=== PATIENT | female | born 1970 | race Caucasian/White ===

== ENCOUNTER 2018-06-21 18:30 | Emergency (ER) | payer OTHER, MEDICAID, SELFPAY ==
[2018-06-21 18:40] VITALS: BP 176/111; PULSE 97; RESP 15; TEMP 36.8; O2SAT 100; BMI 38.7
--- NOTE | 2018-06-21 18:56 | ED_ITS ---
HPI - General Adult General Chief complaint: Diabetic Problem Stated complaint: States her glucose level is very high,dizziness Time Seen by Provider: 06/21/18 18:56 Source: patient Mode of arrival: ambulatory Limitations: no limitations History of Present Illness HPI narrative: Patient is a 47-year-old female with a history of diabetes. She is not currently on insulin. She is on metformin. Has been prescribed Invokana in the past but has not been on this in the past several months because she ran out of it and moved to the area. She does have a appointment scheduled with a new primary doctor on the of next month. She does take her sugars at home. She states that over the past day or so they have been running high. She does have a history of pancreatitis and states she does have some upper ab dominal pain. Today felt very dizzy. She did take her metformin today. She also has a history of headaches. States she has been on Imitrex in the past but does not have any of this medication as well. Related Data Home Medications Medication Instructions Recorded Confirmed HYDROCODONE/ACET (HYDROCODONE 1 tab PO Q4HP #0 06/18/11 BITARTRATE-ACETAMINOPHEN) LOVASTATIN (#ALTOPREV) 20 mg PO Q DAY #0 06/18/11 PANCREATIN (#CREON) 1 cap PO WITH MEALS #0 06/18/11 TRAMADOL HCL (TRAMADOL 50 mg PO PRN #0 06/18/11 HYDROCHLORIDE) Trazodone Hydrochloride (TRAZODONE) 50 mg PO QHS #0 06/18/11 carvedilol [Coreg] 3.125 mg PO BID #0 06/18/11 fluoxetine 40 mg PO Q DAY #0 06/18/11 insulin glargine [Lantus Solostar 34 unit SQ HS #0 06/18/11 U-100 Insulin] lorazepam [Ativan] 0.5 mg PO PRN #0 06/18/11 metformin 1,000 mg PO BID #0 06/18/11 norgestrel-ethinyl estradiol 1 tab PO Q DAY #0 06/18/11 [Oral (28)] omeprazole 40 mg PO QDAY #0 06/18/11 promethazine 25 mg PO PRN #0 06/18/11 LOVASTATIN (MEVACOR) 20 mg PO QDAYPM #0 08/23/11 dicyclomine 20 mg PO #0 08/23/11 insulin glargine [Lantus Solostar 0 unit SQ QDAY #3 ml 08/23/11 U-100 Insulin] metformin [Fortamet] 1,000 mg PO AMCC #0 08/23/11 omeprazole 40 mg PO BID@0600,2100 #0 08/23/11 Previous Rx's Medication Instructions Recorded canagliflozin [Invokana] 50 mg PO QAM #30 tab 06/21/18 sumatriptan succinate [Imitrex] 25 mg PO Q2-4H PRN #14 tab 06/21/18 Allergies Allergy/AdvReac Type Severity Reaction Status Date / Time metoclopramide [From Reglan] Allergy Verified 06/21/18 18:40 Review of Systems Constitutional Reports fatigue, Denies fever(s) and Reports headache(s) ENT Ears, Nose, Mouth, and Throat: Reports headache(s) and Denies sore throat Cardiovascular Denies chest pain and Denies dyspnea Respiratory Denies dyspnea Gastrointestinal Gastrointestinal: Reports abdominal pain, Denies change in stool character, Denies dyspepsia, Denies nausea and Denies vomiting Genitourinary Denies dysuria and Denies pelvic pain Comments: Urinary frequency Musculoskeletal Denies myalgias and Denies arthralgias Integumentary/Breasts Denies rash Neurologic Denies behavioral changes and Reports headache(s) Psychiatric Denies behavioral changes Endocrine Reports fatigue Hematologic/Lymphatic Comments: not on blood thinners Allergic/Immunologic Denies urticaria PFSH Medical History Anxiety (Acute) Diabetes (Acute) Gastroesophageal reflux disease (Acute) Hyperlipidemia (Acute) Hypertension (Acute) Migraines (Acute) Social History Smoking Status: Unknown if ever smoked Social History Smoking Status: Unknown if ever smoked Exam Initial Vital Signs Initial Vital Signs: Vital Signs Temperature 98.2 F 06/21/18 18:40 Pulse Rate 97 H 06/21/18 18:40 Respiratory Rate 15 06/21/18 18:40 Blood Pressure 176/111 H 06/21/18 18:40 Pulse Oximetry 100 06/21/18 18:40 Const General: cooperative, healthy appearing, comfortable, well developed, well groomed and No acute distress Orientation: alert, awake and oriented x3 HENMT Head: normal to inspection and normocephalic Resp Effort & Inspection: normal respiratory effort Auscultation: clear to auscultation bilaterally Cardio Rate: regular rate Rhythm: regular rhythm Pulses: radial pulses present GI Inspection: non-distended Palpation: soft, No firm and tender ( some left upper quadrant tenderness wit hout rebound or guarding) Skin Lesions: no lesions Rashes: no rashes Neuro General: alert, awake and oriented x3 Cognition: normal cognition Speech: speech normal Extrem General: normal to inspection and capillary refill normal Psych Appearance: grossly normal and well kempt Speech and Movement: speech and movement normal Course Orders Ordered: ED Orders 06/21/18 17:53 Complete Blood Count AUTO DIFF Stat Comprehensive Metabolic Panel Stat Ketones (Beta-Hydroxybutyrate) Stat Lactate (Lactic Acid) Stat Lipase Stat Troponin I Stat 06/21/18 18:42 EKG-12 Lead Stat 06/21/18 20:15 Urine Microscopic Stat Discontinued Medications Acetaminophen (Tylenol) 650 mg PO NOW ONE Stop: 06/21/18 20:33 Last Admin: 06/21/18 20:36 Dose: 650 mg Sodium Chloride (Normal Saline 0.9%) 1,000 mls @ 1,000 mls/hr IV BOLUS ONE Stop: 06/21/18 19:55 Last Admin: 06/21/18 21:22 Dose: Not Given Vital Signs - 8 hr 06/21/18 18:40 06/21/18 19:00 06/21/18 19:30 Temperature 98.2 F Pulse Rate 97 H 89 96 H Respiratory Rate 15 14 22 Blood Pressure 176/111 H Blood Pressure [Right Arm] 176/111 H 155/109 H Pulse Oximetry 100 99 100 06/21/18 20:32 06/21/18 21:00 Temperature Pulse Rate 86 92 H Respiratory Rate 18 15 Blood Pressure Blood Pressure [Right Arm] 155/101 H 141/100 H Pulse Oximetry 97 96 Medical Decision Making Lab Data Lab results reviewed: Yes I reviewed the patient's lab results. Result diagrams: 06/21/18 17:53 06/21/18 17:53 Lab Results 06/21/18 06/21/18 06/21/18 Range/Units 17:53 17:53 17:53 WBC 7.6 (4.5-11.0) X10^3/uL RBC 4.91 (4.0-5.2) X10^6/uL Hgb 14.3 (12.0-16.0) g/dL Hct 41.9 (36-46) % MCV 85.3 (80-100) fL MCH 29.1 (26-34) PG MCHC 34.1 (30-36) % RDW 13.6 (11.6-14.8) % Plt Count 371 (150-400) X10^3/uL Neut % (Auto) 42.3 L (50-75) % Lymph % (Auto) 45.3 H (25-40) % [place] % (Auto) 8.5 (3-14) % Eos % (Auto) 2.5 (2-4) % Baso % (Auto) 1.4 (0-2) % Neut # (Auto) 3200 (1893-5499) /uL Lymph # (Auto) 3500 (6847-1777) /uL [place] # (Auto) 600 (0-900) /uL Eos # (Auto) 200 (0-450) /uL Baso # (Auto) 100 (0-100) /uL Sodium 136 L (137-145) mmol/L Potassium 4.0 (3.4-5.1) mmol/L Chloride 98 (98-107) mmol/L Carbon Dioxide 27 (22-32) mmol/L BUN 12 (7-17) mg/dL Creatinine 0.90 (0.52-1.04) mg/dL Estimated GFR > 60.0 (>60) mL/min BUN/Creatinine Ratio 13.3 (6-22) Glucose 355 H (70-100) mg/dL Lactate 2.8 H (0.7-2.1) mmol/L Calcium 9.6 (8.4-10.2) mg/dL Total Bilirubin 0.4 (0.2-1.3) mg/dL AST 20 (14-36) IU/L ALT 34 (9-52) IU/L Alkaline Phosphatase 95 (38-126) U/L Troponin I (0.01-0.034) ng/mL Total Protein 8.0 (6.3-8.2) g/dL Albumin 4.4 (3.5-5.0) g/dL Globulin 3.6 (1.7-4.1) g/dL Albumin/Globulin Ratio 1.2 (1.0-2.8) Lipase 117 (23-300) U/L Urine RBC (0-5/HPF) Urine WBC (0-5/HPF) Ur Squamous Epith Cells Other Crystals Urine Bacteria (None) Ur Culture Indicated? Ketones 0.07 (<0.27) mmol/L 06/21/18 06/21/18 Range/Units 17:53 20:15 WBC (4.5-11.0) X10^3/uL RBC (4.0-5.2) X10^6/uL Hgb (12.0-16.0) g/dL Hct (36-46) % MCV (80-100) fL MCH (26-34) PG MCHC (30-36) % RDW (11.6-14.8) % Plt Count (150-400) X10^3/uL Neut % (Auto) (50-75) % Lymph % (Auto) (25-40) % [place] % (Auto) (3-14) % Eos % (Auto) (2-4) % Baso % (Auto) (0-2) % Neut # (Auto) (8877-5814) /uL Lymph # (Auto) (5266-0928) /uL [place] # (Auto) (0-900) /uL Eos # (Auto) (0-450) /uL Baso # (Auto) (0-100) /uL Sodium (137-145) mmol/L Potassium (3.4-5.1) mmol/L Chloride (98-107) mmol/L Carbon Dioxide (22-32) mmol/L BUN (7-17) mg/dL Creatinine (0.52-1.04) mg/dL Estimated GFR (>60) mL/min BUN/Creatinine Ratio (6-22) Glucose (70-100) mg/dL Lactate (0.7-2.1) mmol/L Calcium (8.4-10.2) mg/dL Total Bilirubin (0.2-1.3) mg/dL AST (14-36) IU/L ALT (9-52) IU/L Alkaline Phosphatase (38-126) U/L Troponin I < 0.012 (0.01-0.034) ng/mL Total Protein (6.3-8.2) g/dL Albumin (3.5-5.0) g/dL Globulin (1.7-4.1) g/dL Albumin/Globulin Ratio (1.0-2.8) Lipase (23-300) U/L Urine RBC 0-1/hpf (0-5/HPF) Urine WBC 0-1/hpf (0-5/HPF) Ur Squamous Epith Cells 0-1 /hpf Other Crystals Other crystals: Urine Bacteria None seen (None) Ur Culture Indicated? Cult not indicated Ketones (<0.27) mmol/L Point of Care Testing Glucose POC 411 Urine Dip Bedside Urine Glucose 1000 mg/dl Bedside Urine Bilirubin - Negative Bedside Urine Ketone - Negative Urine Specific [place] 1.025 Bedside Urine Occult Blood +/- Bedside Urine pH 5.5 Bedside Urine Protein - Negative Bedside Urine Urobilinogen - Negative Bedside Urine Nitrite - Negative Bedside Urine Leukocytes - Negative Esterase Point of care testing: Point of Care Testing Glucose POC 411 Urine Dip Bedside Urine Glucose 1000 mg/dl Bedside Urine Bilirubin - Negative Bedside Urine Ketone - Negative Urine Specific [place] 1.025 Bedside Urine Occult Blood +/- Bedside Urine pH 5.5 Bedside Urine Protein - Negative Bedside Urine Urobilinogen - Negative Bedside Urine Nitrite - Negative Bedside Urine Leukocytes - Negative Esterase ECG Data Attestation: I personally reviewed and interpreted this ECG as follows: Prior ECG tracings: not available for review Interpretation: sinus rhythm Normal axis ventricular rate of 92 Normal QRS normal QTC nonspecific ST T wave changes MDM Narrative Medical decision making narrative: patient's labs are not consistenwith DKA. Lipase is unremarkable. Not consistent with pancreatitis. I suspect that her urinary frequency is secondary to the glucose in her urine. She was hyper glycemic. She is on metformin. EKG is unremarkable. Doubt ACS. Lactate slightly elevated however patient has no other signs of an infection. Will refill her Invokana. Will also refill her Imitrex. Patient has a follow-up with her primary doctor on the next month. Will hold on further workup for now. I do not feel that she needs admitted to the hospital. We did discuss return precautions. Both the patient and her was at bedside expressed understanding and agreement with plan. Discharge Plan Departure Patient Disposition: Home Clinical Impression: Diabetes mellitus Qualifiers: Diabetes mellitus type: type 2 Diabetes mellitus oil heaterman insulin use: without assisted use Diabetes mellitus complication status: with unspecified complications Qualified Code(s): E11.8 - Type 2 diabetes mellitus with unspecified complications Discharge Date/Time: 06/21/18 21:20 Interventions: ED Discharge Assessment Last Done: 06/21/18 21:20 Instructions: Complications of Type 2 Diabetes, DI for Diabetes Type 2 Activity Restrictions/Additional Instructions: recommend you continue all of your medications as directed. Keep all of your scheduled medical appointments. Return to the emergency department for any new or worsening symptoms Prescriptions: New sumatriptan succinate [Imitrex] 25 mg tablet 25 mg PO Q2-4H PRN (Reason: migraine headache) Qty: 14 RF: 0 Invokana 100 mg tablet 50 mg PO QAM Qty: 30 RF: 0 No Action fluoxetine 40 MG capsule 40 mg PO Q DAY Qty: 0 RF: 0 norgestrel-ethinyl estradiol [[place] (28)] 1 EACH tablet 1 tab PO Q DAY Qty: 0 RF: 0 metformin 1,000 MG tablet 1,000 mg PO BID Qty: 0 RF: 0 HYDROCODONE/ACET (HYDROCODONE BITARTRATE-ACETAMINOPHEN) 1 tab PO Q4HP Qty: 0 RF: 0 lorazepam [Ativan] 0.5 MG tablet 0.5 mg PO PRN Qty: 0 RF: 0 promethazine 25 MG tablet 25 mg PO PRN Qty: 0 RF: 0 LOVASTATIN (#ALTOPREV) 20 mg PO Q DAY Qty: 0 RF: 0 omeprazole 40 MG capsule,delayed release(DR/EC) 40 mg PO QDAY Qty: 0 RF: 0 carvedilol [Coreg] 3.125 MG tablet 3.125 mg PO BID Qty: 0 RF: 0 PANCREATIN (#CREON) 1 cap PO WITH MEALS Qty: 0 RF: 0 insulin glargine [Lantus Solostar U-100 Insulin] 100 UNIT/1 ML insulin pen 34 unit SQ HS Qty: 0 RF: 0 TRAMADOL HCL (TRAMADOL HYDROCHLORIDE) 50 mg PO PRN Qty: 0 RF: 0 Trazodone Hydrochloride (TRAZODONE) 50 mg PO QHS Qty: 0 RF: 0 omeprazole 40 MG capsule,delayed release(DR/EC) 40 mg PO BID@0600,2100 Qty: 0 RF: 0 metformin [Fortamet] 1,000 MG tablet extended release 24hr 1,000 mg PO AMCC Qty: 0 RF: 0 insulin glargine [Lantus Solostar U-100 Insulin] 100 UNIT/1 ML insulin pen SQ QDAY Qty: 3 RF: 0 LOVASTATIN (MEVACOR) 20 mg PO QDAYPM Qty: 0 RF: 0 dicyclomine 20 MG tablet 20 mg PO Qty: 0 RF: 0
[2018-06-21 19:00] VITALS: BP 176/111; PULSE 89; RESP 14; O2SAT 99
[2018-06-21 19:30] VITALS: BP 155/109; PULSE 96; RESP 22; O2SAT 100
--- NOTE | 2018-06-21 19:38 | PC.NURSE ---
pt reports dm type 2, takes metformin, has not been taking infocana for 3 months due to primary md or insurance. c/o lightheadedness, dizziness, with nausea, left chest sharp pain, radiating to her back, sxs for 3 days. denies fever,vomited x1, right parietal headache, with shortness of breath on exertion, denies edema lower legs, pt reports, 100 pounds wt lost also .
--- NOTE | 2018-06-21 19:42 | PC.NURSE ---
multiple attempts for iv start, unsuccessful.
[2018-06-21 20:01] LABS: Add Manual Diff / Slide Review NO; Basophils Absolute Auto 100 /uL (0-100); Basophils Percent Auto 1.4 % (0-2); Eosinophils Absolute Auto 200 /uL (0-450); Eosinophils Percent Auto 2.5 % (2-4); Hematocrit 41.9 % (36-46); Hemoglobin 14.3 g/dL (12.0-16.0); Lymphocytes Absolute Auto 3500 /uL (1100-4500); Lymphocytes Percent Auto 45.3 % (25-40); Mean Corpuscular HGB Conc 34.1 % (30-36); Mean Corpuscular Hemoglobin 29.1 PG (26-34); Mean Corpuscular Volume 85.3 fL (80-100); Monocytes Absolute Auto 600 /uL (0-900); Monocytes Percent Auto 8.5 % (3-14); Neutrophils Absolute Auto 3200 /uL (1500-7000); Neutrophils Percent Auto 42.3 % (50-75); Platelet Count 371 X10^3/uL (150-400); Red Blood Cell Count 4.91 X10^6/uL (4.0-5.2); Red Cell Distribution Width 13.6 % (11.6-14.8); White Blood Cell Count 7.6 X10^3/uL (4.5-11.0)
[2018-06-21 20:20] LABS: Lactate (Lactic Acid) 2.8 mmol/L (0.7-2.1)
[2018-06-21 20:21] LABS: Bacteria Urine None Seen
[2018-06-21 20:22] LABS: Alanine Aminotransferase 34 IU/L (9-52); Albumin 4.4 g/dL (3.5-5.0); Albumin Globulin Ratio 1.2 (1.0-2.8); Alkaline Phosphatase 95 U/L (38-126); Aspartate Aminotransferase 20 IU/L (14-36); BUN Creatinine Ratio 13.3 (6-22); Bilirubin Total 0.4 mg/dL (0.2-1.3); Blood Urea Nitrogen 12 mg/dL (7-17); Calcium 9.6 mg/dL (8.4-10.2); Carbon Dioxide 27 mmol/L (22-32); Chloride 98 mmol/L (98-107); Estimated Glomerular Filt Rate > 60.0 mL/min (>60); Globulin 3.6 g/dL (1.7-4.1); Glucose 355 mg/dL (70-100); HEMOLYSIS < 15 (0-50); Lipase 117 U/L (23-300); Sodium 136 mmol/L (137-145)
[2018-06-21 20:25] LABS: Ketones (Beta-Hydroxybutyrate) 0.07 mmol/L (<0.27)
[2018-06-21 20:30] LABS: RBC Urine 0-1/HPF (0-5/HPF); Squamous Epithelial Cell Urine 0-1 /HPF; WBC Urine 0-1/HPF (0-5/HPF)
[2018-06-21 20:31] LABS: Culture Indicated Urine Cult Not Indicated; Other Crystals Urine Other Crystals:
[2018-06-21 20:32] VITALS: BP 155/101; PULSE 86; RESP 18; O2SAT 97
[2018-06-21 20:33] LABS: Troponin I < 0.012 ng/mL (0.01-0.034)
[2018-06-21] MEDS: ACETAMINOPHEN 325 MG TABLET 650 MG PO (20:36)
[2018-06-21 21:00] VITALS: BP 141/100; PULSE 92; RESP 15; O2SAT 96
[2018-06-21 23:58] LABS: Reflexed Lactate in 2 Hours Y
== END 2018-06-21 21:20 | disposition home or self-care (01) ==
PROVIDERS: Emergency Provider Emergency Medicine
DX: E11.8 Type 2 diabetes mellitus with unspecified complications (principal)
CPT/HCPCS: 36415; 80053; 81003; 81015; 82009; 82962; 83605; 83690; 84484; 85025; 93005; 93010; 99283; 99284

== ENCOUNTER 2018-08-23 13:20 | Emergency (ER) | payer SELFPAY ==
[2018-08-23 13:24] VITALS: BP 136/86; PULSE 120; RESP 16; TEMP 36.8; O2SAT 99; BMI 39.4
[2018-08-23 14:16] LABS: Add Manual Diff / Slide Review NO; Basophils Absolute Auto 100 /uL (0-100); Basophils Percent Auto 1.2 % (0-2); Eosinophils Absolute Auto 100 /uL (0-450); Eosinophils Percent Auto 1.5 % (2-4); Hematocrit 43.6 % (36-46); Hemoglobin 14.5 g/dL (12.0-16.0); Lymphocytes Absolute Auto 3200 /uL (1100-4500); Lymphocytes Percent Auto 38.5 % (25-40); Mean Corpuscular HGB Conc 33.2 % (30-36); Mean Corpuscular Hemoglobin 28.9 PG (26-34); Mean Corpuscular Volume 87.1 fL (80-100); Monocytes Absolute Auto 600 /uL (0-900); Monocytes Percent Auto 7.5 % (3-14); Neutrophils Absolute Auto 4300 /uL (1500-7000); Neutrophils Percent Auto 51.3 % (50-75); Platelet Count 410 X10^3/uL (150-400); Red Blood Cell Count 5.01 X10^6/uL (4.0-5.2); Red Cell Distribution Width 13.3 % (11.6-14.8); White Blood Cell Count 8.3 X10^3/uL (4.5-11.0)
[2018-08-23] MEDS: SODIUM CHLORIDE 0.9% 1,000 ML 1000 ML IV (14:19)
[2018-08-23] MEDS: ONDANSETRON 4 MG/2 ML INJ IV (14:19)
[2018-08-23 14:23] LABS: INR 0.9 (0.9-1.3); Prothrombin Time 10.2 SECONDS (10.1-12.7)
[2018-08-23 14:25] LABS: PTT Partial Thromboplastin Tim 32 SECONDS (26.4-36.2)
[2018-08-23 14:29] LABS: Alanine Aminotransferase 30 IU/L (9-52); Albumin 4.7 g/dL (3.5-5.0); Albumin Globulin Ratio 1.3 (1.0-2.8); Alkaline Phosphatase 69 U/L (38-126); Aspartate Aminotransferase 25 IU/L (14-36); BUN Creatinine Ratio 13.8 (6-22); Bilirubin Total 0.5 mg/dL (0.2-1.3); Blood Urea Nitrogen 11 mg/dL (7-17); Calcium 9.7 mg/dL (8.4-10.2); Carbon Dioxide 25 mmol/L (22-32); Chloride 99 mmol/L (98-107); Estimated Glomerular Filt Rate > 60.0 mL/min (>60); Globulin 3.6 g/dL (1.7-4.1); Glucose 185 mg/dL (70-100); HEMOLYSIS 31 (0-50); Lipase 82 U/L (23-300); Potassium 4.3 mmol/L (3.4-5.1); Sodium 139 mmol/L (137-145); Total Protein 8.3 g/dL (6.3-8.2)
[2018-08-23 14:56] VITALS: BP 108/71; PULSE 100
[2018-08-23] MEDS: PROCHLORPERAZINE 10 MG/2 ML VIAL IV (14:56)
[2018-08-23] MEDS: KETOROLAC 60 MG/2 ML VIAL 30 MG IV (14:56)
[2018-08-23] MEDS: diphenhydrAMINE 50 MG/ML VIAL 25 MG IV (15:27)
--- NOTE | 2018-08-23 15:28 | PC.NURSE ---
Anxiety reaction to compazine. MD aware. Verbal order for benadyl 25mg IV given
[2018-08-23 15:30] VITALS: BP 115/76; PULSE 88; RESP 16; O2SAT 97
[2018-08-23 16:23] LABS: Creatine Kinase 45 U/L (30-135)
[2018-08-23 16:35] LABS: Troponin I < 0.012 ng/mL (0.01-0.034)
[2018-08-23 17:12] VITALS: BP 106/69; PULSE 80; RESP 16; O2SAT 96
--- NOTE | 2018-08-25 12:54 | ED.NAVMDI ---
HPI - Nausea/Vomiting/Diarrhea General Chief complaint: Nausea/Vomiting/Diarrhea Stated complaint: Diarrhea,chest is heavy Time Seen by Provider: 08/23/18 14:09 Source: patient Mode of arrival: ambulatory Limitations: no limitations History of Present Illness HPI Narrative: Patient presents the emergency department complaining of nausea and vomiting for the past week. She states that she has had diarrhea also. She states that for the last couple of days, she has had a substernal chest pain and burning, radiating to her right back and shoulder. She also states that she has feels somewhat dehydrated and lightheaded. Patient denies fevers. No dysuria. No shortness breath or cough. No other complaints at this time. Patient has no history of cardiac issues. She states her pain is a 5/10. She states the vomiting makes it worse. Related Data Home Medications Medication Instructions Recorded Confirmed metformin 1,000 mg PO BID #0 06/18/11 08/23/18 canagliflozin [Invokana] 100 mg PO QAM 08/23/18 08/23/18 diphenhydramine HCl 25 mg PO Q4-6H PRN 08/23/18 08/23/18 fluoxetine 20 mg PO QPM 08/23/18 08/23/18 lisinopril 10 mg PO DAILY 08/23/18 08/23/18 penicillin V potassium 500 mg PO BID 08/23/18 08/23/18 Previous Rx's Medication Instructions Recorded ondansetron 4 mg PO QID PRN #10 tab 08/23/18 Allergies Allergy/AdvReac Type Severity Reaction Status Date / Time metoclopramide [From Reglan] Allergy Verified 08/23/18 13:32 prochlorperazine Allergy Anxiety Verified 08/23/18 15:36 [From Compazine] Review of Systems Constitutional Denies chills, Denies fever(s), Denies lethargy and Denies weakness Eyes Denies change in vision, Denies eye discharge, Denies irritation and Denies loss of vision ENT Ears, Nose, Mouth, and Throat: Denies change in voice, Denies neck pain and Denies sore throat Cardiovascular Reports chest pain, Denies irregular heart rhythm, Denies lightheadedness, Denies palpitations, Denies dyspnea, Denies dyspnea on exertion and Denies orthopnea Respiratory Denies cough, Denies dyspnea, Denies dyspnea on exertion and Denies wheezing Gastrointestinal Gastrointestinal: Denies abdominal pain, Denies change in bowel habits, Reports diarrhea, Reports nausea and Reports vomiting Genitourinary Denies hematuria, Denies flank pain, Denies urinary incontinence and Denies urinary urgency Musculoskeletal Denies neck pain Integumentary/Breasts Denies pruritus, Denies erythema, Denies rash and Denies wounds Neurologic Denies confusion, Denies loss of vision and Denies weakness Psychiatric Denies anxiety, Denies confusion, Denies depression, Denies homicidal ideation and Denies suicidal ideation Endocrine Denies palpitations Hematologic/Lymphatic Denies easy bruising Allergic/Immunologic Denies wheezing [facility] Medical History Anxiety (Acute) Diabetes (Acute) Gastroesophageal reflux disease (Acute) Hyperlipidemia (Acute) Hypertension (Acute) Migraines (Acute) Social History Smoking Status: Never smoker Social History Smoking Status: Never smoker Exam Initial Vital Signs Initial Vital Signs: Vital Signs Temperature 98.3 F 08/23/18 13:24 Pulse Rate 120 H 08/23/18 13:24 Respiratory Rate 16 08/23/18 13:24 Blood Pressure 136/86 08/23/18 13:24 Pulse Oximetry 99 08/23/18 13:24 Const General: cooperative and well developed Nutritional Appearance: well nourished Orientation: alert, awake, oriented x3 and not confused [facility] Head: normocephalic and atraumatic Ears: external ears normal and TM's normal bilaterally Nose: external nose normal and No nasal discharge Face and sinus: sinuses nontender, face symmetric, no sinus tenderness and No dry mucous membranes Mouth: oral mucosae normal and moist mucous membranes Teeth and gingiva: dentition normal Throat: tonsils normal and uvula midline Eyes General: appearance normal, both eyes and all related structures Eyelids: eyelids normal Conjunctivae: conjunctivae normal Sclera: sclerae normal Pupils: PERRL EOM: EOM intact bilaterally Neck Neck: normal visual inspection, trachea midline, No lymphadenopathy, No midline deformity and No JVD Lymphatic: No lymphedema Chest Chest: normal inspection of the chest Resp Effort & Inspection: normal respiratory effort, able to speak in complete sentences, no respiratory distress and no use of accessory muscles Auscultation: clear to auscultation bilaterally, no rales, no rhonchi and no wheezes Cardio Rate: regular rate Rhythm: regular rhythm Heart Sounds: no click, no gallops, no murmurs and no rubs Pulses: normal peripheral pulses GI Inspection: non-distended Palpation: soft, no hepatosplenomegaly, No guarding, No pulsatile mass and tender (Mild, diffuse.) Auscultation: normal bowel sounds Back/Spine/Pelvis Back: No CVA tenderness Cervical Spine: cervical ROM normal and No pain with cervical ROM Thoracic/Lumbar Spine: thoracic and lumbar spine normal to inspection Skin General: no rashes or lesions noted, No jaundice and No petechiae Neuro General: alert, oriented x3, gait normal and no focal motor deficits Speech: speech normal Extrem General: full ROM, no clubbing, cyanosis or edema, no pedal edema and no calf tenderness Psych Appearance: well kempt Mental Status: mental status grossly normal Attitude: cooperative Thought Content: normal and suicidality Judgment: judgment good Course Course Narrative: Patient was treated symptomatically with IV fluid and Zofran, and worked up with laboratory studies, which were unremarkable. Patient was found to be feeling better after symptomatic management. I did not find evidence of an emergent cause of her symptoms. I felt that the chest discomfort was most likely due to the patient's GI illness for the last week. We have discussed home management of the symptoms, follow-up, and the usual indications for return. Orders Ordered: Discontinued Medications Diphenhydramine HCl (Benadryl) 25 mg IV NOW ONE Stop: 08/23/18 15:28 Last Admin: 08/23/18 15:27 Dose: 25 mg Sodium Chloride (Normal Saline 0.9%) 1,000 mls @ 1,000 mls/hr IV BOLUS ONE Stop: 08/23/18 15:15 Last Infusion: 08/23/18 15:26 Dose: 0 mls/hr Admin: 08/23/18 14:19 Dose: 1,000 mls/hr Ketorolac Tromethamine (Toradol) 30 mg IV NOW ONE Stop: 08/23/18 14:52 Last Admin: 08/23/18 14:56 Dose: 30 mg Ondansetron HCl (Zofran) 4 mg IV NOW ONE Stop: 08/23/18 13:59 Last Admin: 08/23/18 14:19 Dose: 4 mg Prochlorperazine (Compazine) 10 mg IV NOW ONE Stop: 08/23/18 14:52 Last Admin: 08/23/18 14:56 Dose: 10 mg MDM - Nausea/Vomiting/Diarrhea Medical Records Attestation: I reviewed the patient's medical records. Lab Data Attestation: I reviewed the patient's lab results. Result diagrams: 08/23/18 14:05 08/23/18 14:05 Lab Results 08/23/18 08/23/18 08/23/18 Range/Units 14: 14:05 14:05 WBC 8.3 (4.5-11.0) X10^3/uL RBC 5.01 (4.0-5.2) X10^6/uL Hgb 14.5 (12.0-16.0) g/dL Hct 43.6 (36-46) % MCV 87.1 (80-100) fL MCH 28.9 (26-34) PG MCHC 33.2 (30-36) % RDW 13.3 (11.6-14.8) % Plt Count 410 H (150-400) X10^3/uL Neut % (Auto) 51.3 (50-75) % Lymph % (Auto) 38.5 (25-40) % [place] % (Auto) 7.5 (3-14) % Eos % (Auto) 1.5 L (2-4) % Baso % (Auto) 1.2 (0-2) % Neut # (Auto) 4300 (5448-8273) /uL Lymph # (Auto) 3200 (6863-5991) /uL [place] # (Auto) 600 (0-900) /uL Eos # (Auto) 100 (0-450) /uL Baso # (Auto) 100 (0-100) /uL PT 10.2 (10.1-12.7) SECONDS INR 0.9 (0.9-1.3) APTT 32 (26.4-36.2) SECONDS Sodium 139 (137-145) mmol/L Potassium 4.3 (3.4-5.1) mmol/L Chloride 99 (98-107) mmol/L Carbon Dioxide 25 (22-32) mmol/L BUN 11 (7-17) mg/dL Creatinine 0.80 (0.52-1.04) mg/dL Estimated GFR > 60.0 (>60) mL/min BUN/Creatinine Ratio 13.8 (6-22) Glucose 185 H (70-100) mg/dL Calcium 9.7 (8.4-10.2) mg/dL Total Bilirubin 0.5 (0.2-1.3) mg/dL AST 25 (14-36) IU/L ALT 30 (9-52) IU/L Alkaline Phosphatase 69 (38-126) U/L Total Creatine Kinase (30-135) U/L CK-MB (CK-2) CK-MB (CK-2) Rel Index Troponin I (0.01-0.034) ng/mL Total Protein 8.3 H (6.3-8.2) g/dL Albumin 4.7 (3.5-5.0) g/dL Globulin 3.6 (1.7-4.1) g/dL Albumin/Globulin Ratio 1.3 (1.0-2.8) Lipase 82 (23-300) U/L 08/23/18 Range/Units 14:05 WBC (4.5-11.0) X10^3/uL RBC (4.0-5.2) X10^6/uL Hgb (12.0-16.0) g/dL Hct (36-46) % MCV (80-100) fL MCH (26-34) PG MCHC (30-36) % RDW (11.6-14.8) % Plt Count (150-400) X10^3/uL Neut % (Auto) (50-75) % Lymph % (Auto) (25-40) % [place] % (Auto) (3-14) % Eos % (Auto) (2-4) % Baso % (Auto) (0-2) % Neut # (Auto) (4375-6678) /uL Lymph # (Auto) (3283-3011) /uL [place] # (Auto) (0-900) /uL Eos # (Auto) (0-450) /uL Baso # (Auto) (0-100) /uL PT (10.1-12.7) SECONDS INR (0.9-1.3) APTT (26.4-36.2) SECONDS Sodium (137-145) mmol/L Potassium (3.4-5.1) mmol/L Chloride (98-107) mmol/L Carbon Dioxide (22-32) mmol/L BUN (7-17) mg/dL Creatinine (0.52-1.04) mg/dL Estimated GFR (>60) mL/min BUN/Creatinine Ratio (6-22) Glucose (70-100) mg/dL Calcium (8.4-10.2) mg/dL Total Bilirubin (0.2-1.3) mg/dL AST (14-36) IU/L ALT (9-52) IU/L Alkaline Phosphatase (38-126) U/L Total Creatine Kinase 45 (30-135) U/L CK-MB (CK-2) TNP CK-MB (CK-2) Rel Index TNP Troponin I < 0.012 (0.01-0.034) ng/mL Total Protein (6.3-8.2) g/dL Albumin (3.5-5.0) g/dL Globulin (1.7-4.1) g/dL Albumin/Globulin Ratio (1.0-2.8) Lipase Cancelled (23-300) U/L Urine Dip Bedside Urine Glucose 1000 mg/dl Bedside Urine Bilirubin - Negative Bedside Urine Ketone +/- 5 Urine Specific [place] 1.015 Bedside Urine Occult Blood - Negative Bedside Urine pH 6.0 Bedside Urine Protein - Negative Bedside Urine Urobilinogen 1+ 2mg Bedside Urine Nitrite - Negative Bedside Urine Leukocytes - Negative Esterase Discharge Plan Departure Patient Disposition: Home Clinical Impression: Gastroenteritis Discharge Date/Time: 08/23/18 17:17 Interventions: ED Discharge Assessment Last Done: 08/23/18 17:16 Instructions: DI for Dehydration -- Adult, DI for Viral Gastroenteritis -- Adult Activity Restrictions/Additional Instructions: All of your labs look good. There is no evidence of a more serious cause of your symptoms. Please take the anti nausea medication, as needed, and the anti-diarrheal medicine as needed, as well. please be sure to drink plenty of fluids. If your symptoms are not better by the end of the weekend, please follow up with your primary doctor for further evaluation. Prescriptions: New ondansetron 4 mg tablet,disintegrating 4 mg PO QID PRN (Reason: nausea and vomiting) Qty: 10 RF: 0 No Action metformin 1,000 MG tablet 1,000 mg PO BID Qty: 0 RF: 0 penicillin V potassium 500 mg tablet 500 mg PO BID RF: 0 lisinopril 10 mg tablet 10 mg PO DAILY RF: 0 fluoxetine 20 mg capsule 20 mg PO QPM RF: 0 Invokana 100 mg tablet 100 mg PO QAM RF: 0 diphenhydramine HCl 25 mg Capsule 25 mg PO Q4-6H PRN (Reason: unknown) RF: 0 Referrals: [facility] [Provider Group]
== END 2018-08-23 17:17 | disposition home or self-care (01) ==
PROVIDERS: Emergency Provider Emergency Medicine
DX: K52.9 Noninfective gastroenteritis and colitis, unspecified (principal); R07.89 Other chest pain
CPT/HCPCS: 36591; 80053; 81003; 82550; 83690; 84484; 85025; 85610; 85730; 93005; 96361; 96374; 96375; 99283; 99284; J0780; J1200; J1885; J2405